=== PATIENT | male | born 1995 | race African-American/Black ===

== ENCOUNTER 2018-08-16 07:54 | Emergency (ER) | payer SELFPAY ==
[~2018-08-16] VITALS: Ht 170.2 cm; Wt 77.0 kg
[2018-08-16 08:01] VITALS: BP 119/81
== END 2018-08-16 09:52 | disposition left against medical advice (07) ==
LOC: ER 08:16
DX: M54.5 Low back pain (principal); Z53.21 Procedure and treatment not carried out due to patient leaving prior to being seen by health care provider